=== PATIENT | female | born 1990 | race American Indian/Alaskan Native ===

== ENCOUNTER 2017-02-07 00:14 | Emergency (ER) | payer MEDICAID ==
[2017-02-07 01:56] LABS: Basophils % (Auto) 0.3 % (0.0-1.8); Eosinophils % (Auto) 1.3 % (0.0-4.3); Hematocrit 37.1 % (30.3-42.9); Hemoglobin 12.4 gm/dl (10.1-14.3); Mean Corpuscular HGB Conc 33 % (30-34); Mean Corpuscular Hemoglobin 31 pg (28-32); Mean Corpuscular Volume 93 fl (79-97); Platelet Count 239 K/mm3 (140-440); Red Blood Count 3.99 M/mm3 (3.65-5.03); Red Cell Distribution Width 14.5 % (13.2-15.2); White Blood Count 9.1 K/mm3 (4.5-11.0)
[2017-02-07 02:19] LABS: Alanine Aminotransferase 13 units/L (7-56); Albumin 4.5 g/dL (3.9-5); Albumin/Globulin Ratio 1.3 %; Alkaline Phosphatase 52 units/L (35-129); Anion Gap 18 mmol/L; Blood Urea Nitrogen 6 mg/dL (7-17); Calcium 9.4 mg/dL (8.4-10.2); Carbon Dioxide 25 mmol/L (22-30); Chloride 100.8 mmol/L (98-107); Glucose 85 mg/dL (65-100); Lipase 22 units/L (13-60); Potassium 3.5 mmol/L (3.6-5.0); Sodium 140 mmol/L (137-145); Total Protein 7.9 g/dL (6.3-8.2)
[2017-02-07 07:49] LABS: Bilirubin,Urine NEG (Negative); Blood,Urine NEG (Negative); Ketones,Urine TR mg/dL (Negative); Leukocyte Esterase,Urine MOD (Negative); Mucus,Urine 3+ /HPF; Nitrite,Urine NEG (Negative)
[2017-02-07] MEDS ORDERED: MACROBID PO ONE (07:55)
--- NOTE | 2017-02-07 08:40 | Emergency Department Report ---
HPI - General Chief Complaint: Abdominal Pain Time Seen by Provider: 02/07/17 07:55 - HPI HPI: This is a 26 year-old female presents to the emergency department with the complaint of some lower abdominal pain that started earlier yesterday afternoon. She denies any nausea, vomiting, dysuria, vaginal bleeding or discharge. She denies any past medical history. She has a previous surgical history of C-sections 2 and a previous ectopic . She does not have a primary care doctor. She is not taking anything for her symptoms prior presentation. ED Past Medical Hx - Past Medical History Previous Medical History?: No - Surgical History Past Surgical History?: Yes Additional Surgical History: c- sec x2 ectopic pregX1 - Social History Smoking Status: Current Every Day Smoker Substance Use Type: Alcohol - Medications Home Medications: Home Medications Medication Instructions Recorded Confirmed Last Taken Type Nitrofurantoin Guadalupe/M-Cryst 100 mg PO BID #14 capsule 02/07/17 Unknown Rx [Macrobid CAP] ED Review of Systems ROS: Stated complaint: ABDOMINAL PAIN Other details as noted in HPI Comment: All other systems reviewed and negative Constitutional: denies: chills, fever Eyes: denies: eye pain, eye discharge, vision change ENT: denies: ear pain, throat pain Respiratory: denies: cough, shortness of breath, wheezing Cardiovascular: denies: chest pain, palpitations Gastrointestinal: abdominal pain. denies: nausea, diarrhea Genitourinary: denies: urgency, dysuria, discharge Musculoskeletal: denies: back pain, joint swelling, arthralgia Skin: denies: rash, lesions Neurological: denies: headache, weakness, paresthesias Physical Exam - Physical Exam Vital Signs: Vital Signs 02/07/17 00:53 Temperature 98.1 F Pulse Rate 76 Respiratory 18 Rate Blood Pressure 122/84 O2 Sat by Pulse 100 Oximetry Physical Exam: GENERAL: The patient is well-developed well-nourished. HENT: Normocephalic. Atraumatic. Patient has moist mucous membranes. EYES: Extraocular motions are intact. Pupils equal reactive to light bilaterally. NECK: Supple. Trachea is midline. CHEST/LUNGS: Clear to auscultation. There is no respiratory distress noted. HEART/CARDIOVASCULAR: Regular. There is no tachycardia. There is no gallop rub or murmur. ABDOMEN: Abdomen is soft, nontender. No guarding or rebound tenderness. Patient has normal bowel sounds. There is no abdominal distention. SKIN: Skin is warm and dry. NEURO: The patient is awake, alert, and oriented. The patient is cooperative. The patient has no focal neurologic deficits. The patient has normal speech. MUSCULOSKELETAL: There is no tenderness or deformity. There is no limitation range of motion. There is no evidence of acute injury. ED Course Vital Signs 02/07/17 00:53 Temperature 98.1 F Pulse Rate 76 Respiratory 18 Rate Blood Pressure 122/84 O2 Sat by Pulse 100 Oximetry ED Medical Decision Making - Lab Data Result diagrams: 02/07/17 01:42 02/07/17 01:42 - Medical Decision Making 26-year-old female presents with a one-day history of some lower abdominal pain. The patient was within the emergency department for multiple hours prior to shift beginning and by the time I have seen the patient she denies any abdominal pain and is asking for discharge home. Labs are mostly unremarkable except for a urinary tract infection. Patient is not . Vital signs stable including being afebrile. She was placed on Macrobid and given referrals for primary care. She will return to the ER with any return of her symptoms or any acute distress. - Differential Diagnosis UTI, , fibroids, colitis Critical Care Time: No Critical care attestation.: If time is entered above; I have spent that time in minutes in the direct care of this critically ill patient, excluding procedure time. ED Disposition Clinical Impression: Abdominal pain Qualifiers: Abdominal location: lower abdomen, unspecified Qualified Code(s): R10.30 - Lower abdominal pain, unspecified UTI (urinary tract infection) Qualifiers: Urinary tract infection type: acute cystitis Hematuria presence: without hematuria Qualified Code(s): N30.00 - Acute cystitis without hematuria Disposition: TO HOME OR SELFCARE Is pt being admited?: No Condition: Stable Instructions: Urinary Tract Infection in Women (ED), Abdominal Pain (ED) Additional Instructions: Follow-up with a primary care physician in the next few days. Return to the emergency Department with any worsening of your symptoms or any acute distress. Prescriptions: Nitrofurantoin Guadalupe/M-Cryst [Macrobid CAP] 100 mg PO BID #14 capsule Referrals: RAQUEL MARTIN MD [Primary Care Provider] - 3-5 Days MATTHEW AUGUSTE MD [Staff Physician] - 3-5 Days [facility] [Outside] - 3-5 Days [facility] [Outside] - 3-[address] [facility] [Outside] - 3-5 Days Time of Disposition: 08:39
[2017-02-07 09:05] VITALS: BP 127/87
== END 2017-02-07 09:04 | disposition home or self-care (01) ==
LOC: ED 00:14
DX: N30.00 Acute cystitis without hematuria (principal); R10.30 Lower abdominal pain, unspecified; F17.200 Nicotine dependence, unspecified, uncomplicated
CPT/HCPCS: 36415; 80053; 81001; 83690; 84703; 85025

== ENCOUNTER 2017-06-19 00:05 | Emergency (ER) | payer MEDICAID ==
[2017-06-19 03:46] LABS: Basophils # (Auto) 0.1 K/mm3 (0.0-0.1); Basophils % (Auto) 0.6 % (0.0-1.8); Eosinophils # (Auto) 0.4 K/mm3 (0.0-0.4); Eosinophils % (Auto) 2.4 % (0.0-4.3); Hematocrit 37.6 % (30.3-42.9); Hemoglobin 12.6 gm/dl (10.1-14.3); Lymphocytes % (Auto) 20.9 % (13.4-35.0); Mean Corpuscular HGB Conc 34 % (30-34); Mean Corpuscular Hemoglobin 31 pg (28-32); Mean Corpuscular Volume 93 fl (79-97); Monocytes # (Auto) 0.7 K/mm3 (0.0-0.8); Monocytes % (Auto) 4.6 % (0.0-7.3); Platelet Count 287 K/mm3 (140-440); Red Blood Count 4.07 M/mm3 (3.65-5.03); Red Cell Distribution Width 13.6 % (13.2-15.2)
[2017-06-19 04:12] LABS: Alanine Aminotransferase 8 units/L (7-56); Albumin 4.5 g/dL (3.9-5); BUN/Creatinine Ratio 22; Blood Urea Nitrogen 11 mg/dL (7-17); Hemolysis Index 14
[2017-06-19 06:06] LABS: Bilirubin,Urine NEG (Negative); Blood,Urine NEG (Negative); Color,Urine Yellow (Yellow); Mucus,Urine 3+ /HPF; Nitrite,Urine NEG (Negative)
[2017-06-19 06:08] LABS: HCG Qualitative,Urine Negative (Negative)
--- NOTE | 2017-06-19 18:23 | Emergency Department Report ---
ED Female HPI - General Chief complaint: Vaginal Bleeding Stated complaint: VAG BLEEDING / ABD PAIN Time Seen by Provider: 06/19/17 18:05 Source: patient Mode of arrival: Ambulatory Limitations: No Limitations - History of Present Illness Initial comments: 26 yo female who comes in today due to vaginal spotting and abdominal pain. She states that it has been present off and on since May 28. She states that normally her menstrual cycles are from the of the month until the of the month. This cycle started on May 28 and has persisted until the 01 of June. She has also had spotting on occasion since the . She describes the abdominal pain as suprapubic, 6/10, with no associated nausea, vomiting, fever, or chills. Also admits to white vaginal discharge times one on today when she urinated and wiped. Denies any past medical history. MD Complaint: vaginal bleeding, vaginal discharge, possible STD -: month(s) (one ) Location: suprapubic Radiation: non-radiating Severity: mild Severity scale (0 -10): 6 Quality: cramping, sharp, aching Consistency: intermittent Improves with: none Are you Now?: No Last Menstrual Period: 05/28/17 EDC: 03/04/18 Associated Symptoms: vaginal discharge, vaginal bleeding - Related Data Sexually active: Yes Previous Rx's Medication Instructions Recorded Last Taken Type Nitrofurantoin Pierce/M-Cryst 100 mg PO BID #14 capsule 02/07/17 Unknown Rx [Macrobid CAP] Ciprofloxacin HCl [Cipro] 500 mg PO BID #6 tablet 06/19/17 Unknown Rx Allergies Allergy/AdvReac Type Severity Reaction Status Date / Time No Known Allergies Allergy Unverified 02/07/17 00:53 ED Review of Systems ROS: Stated complaint: VAG BLEEDING / ABD PAIN Other details as noted in HPI Constitutional: denies: chills, fever Eyes: denies: eye pain, eye discharge, vision change ENT: denies: ear pain, throat pain Respiratory: denies: cough, shortness of breath, wheezing Cardiovascular: denies: chest pain, palpitations Endocrine: no symptoms reported Gastrointestinal: as per HPI, abdominal pain Genitourinary: discharge (vaginal spotting ) Musculoskeletal: denies: back pain, joint swelling, arthralgia Skin: denies: rash, lesions Neurological: denies: headache, weakness, paresthesias Psychiatric: denies: anxiety, depression Hematological/Lymphatic: denies: easy bleeding, easy bruising ED Past Medical Hx - Past Medical History Previous Medical History?: No - Surgical History Past Surgical History?: Yes Additional Surgical History: c- sec x2 ectopic pregX1 - Social History Smoking Status: Current Every Day Smoker Substance Use Type: Alcohol - Medications Home Medications: Home Medications Medication Instructions Recorded Confirmed Last Taken Type Nitrofurantoin Pierce/M-Cryst 100 mg PO BID #14 capsule 02/07/17 Unknown Rx [Macrobid CAP] Ciprofloxacin HCl [Cipro] 500 mg PO BID #6 tablet 06/19/17 Unknown Rx ED Physical Exam - General Limitations: No Limitations General appearance: alert, in no apparent distress - Head Head exam: Present: atraumatic, normocephalic - Eye Eye exam: Present: normal appearance - ENT ENT exam: Present: mucous membranes moist - Neck Neck exam: Present: normal inspection - Respiratory Respiratory exam: Present: normal lung sounds bilaterally. Absent: respiratory distress - Cardiovascular Cardiovascular Exam: Present: regular rate, normal rhythm. Absent: systolic murmur, diastolic murmur, rubs, gallop - GI/Abdominal GI/Abdominal exam: Present: soft, tenderness (suprapubic) - Extremities Exam Extremities exam: Present: normal inspection - Back Exam Back exam: Present: normal inspection - Neurological Exam Neurological exam: Present: alert, oriented X3 - Psychiatric Psychiatric exam: Present: normal affect, normal mood - Skin Skin exam: Present: warm, dry, intact, normal color. Absent: rash ED Course Vital Signs 06/19/17 06/19/17 01:12 02:25 Temperature 98.2 F 98.2 F Pulse Rate 72 66 Respiratory 18 18 Rate Blood Pressure 117/79 117/79 O2 Sat by Pulse 98 99 Oximetry - Reevaluation(s) Reevaluation #1: 06/19/17 18:26 The patient was instructed that she isn't . She was also informed that her vaginal discharge and spotting could be worked up in a primary care office or pest control specialist's. She was given a prescription for ciprofloxacin on discharge. She was informed once again to see primary care or OB on discharge. ED Medical Decision Making - Lab Data Result diagrams: 06/19/17 03:08 06/19/17 03:08 - Medical Decision Making Urinary tract infection Vaginal spotting STD? - Differential Diagnosis Uti, vaginal spotting, Std? Critical care attestation.: If time is entered above; I have spent that time in minutes in the direct care of this critically ill patient, excluding procedure time. ED Disposition Clinical Impression: Urinary tract infection, Vaginal spotting Disposition: TO HOME OR SELFCARE Is pt being admited?: No Does the pt Need Aspirin: No Condition: Stable Instructions: Urinary Tract Infection in Women (ED), Menstruation (ED) Additional Instructions: Please establish with primary care or OB on discharge for further evaluation of your vaginal spotting. Take medicine as prescribed until completed. Prescriptions: Ciprofloxacin HCl [Cipro] 500 mg PO BID #6 tablet Referrals: PRIMARY CARE, [Primary Care Provider] - 3-5 Days Time of Disposition: 18:30
[2017-06-19 19:00] VITALS: BP 127/71
== END 2017-06-19 19:00 | disposition home or self-care (01) ==
LOC: ED 00:05
DX: N39.0 Urinary tract infection, site not specified (principal); N93.8 Other specified abnormal uterine and vaginal bleeding; F17.200 Nicotine dependence, unspecified, uncomplicated
CPT/HCPCS: 36415; 80053; 81001; 81025; 84702; 85025; 86850; 86900; 86901; 99283